=== PATIENT | female | born 1995 | race Caucasian/White ===

== ENCOUNTER 2019-02-01 12:53 | Emergency (ER) | payer MEDICAID ==
[2019-02-01] MEDS ORDERED: GENTAMICIN 0.3% DROPS PREPACK OPHT.BTL TAKEHOME ONE (13:20)
--- NOTE | 2019-02-01 13:21 | EDPHY ---
H & P Time Seen by Provider: 02/01/19 13:09 HPI/ROS: CHIEF COMPLAINT: Right eye redness HISTORY OF PRESENT ILLNESS: Patient noticed this morning right eye redness and drainage. Denies any decrease in visual acuity, denies foreign body sensation or direct trauma. REVIEW OF SYSTEMS: No fevers PAST MEDICAL HISTORY: Negative Social history: Nonsmoker General Appearance: Alert, no distress. Lids and Lashes: No edema, no stye, no erythema. Conjunctivae: Injected with right-sided exudate. Sclera: No subconjunctival hemorrhage, no icterus. Pupils: Equal and round, normally reactive. Corneas: No foreign body on surface of cornea. Anterior chamber: normal, no hyphema or hypopyon. External: No proptosis, no periorbital swelling or redness or tenderness. EOMI. Emergency Department course/MDM: Likely acute conjunctivitis, will treat with antibiotic eyedrops and ophthalmology referral. Smoking Status: Never smoked Constitutional: Initial Vital Signs Temperature (C) 36.7 C 02/01/19 13:00 Heart Rate 72 02/01/19 13:00 Respiratory Rate 16 02/01/19 13:00 O2 Sat (%) 96 02/01/19 13:00 O2 Delivery Mode Room Air Allergies/Adverse Reactions: No Known Allergies Allergy (Unverified 02/01/19 13:03) Home Medications: Medication Instructions Recorded Control 02/01/19 MDM/Departure - MDM Medications Given: Discontinued Medications Gentamicin Sulfate (Gentak 0.3% Opht Drops Prepack) 1 btl [place] EDNOW ONE Stop: 02/01/19 13:21 Last Admin: 02/01/19 13:27 Dose: 1 btl - Depart Disposition: Home, Routine, Self-Care Clinical Impression: Acute conjunctivitis of right eye Qualifiers: Acute conjunctivitis type: unspecified Qualified Code(s): H10.31 - Unspecified acute conjunctivitis, right eye Condition: Good Instructions: Gentamicin (Into the eye), Conjunctivitis (ED) Additional Instructions: Antibiotic eyedrop 1-2 drops in the right eye every 3-4 hours while awake for the next 4 days. Return for worsening eye discharge or pain or any decrease in vision. Referred to referral food chemist if not getting better in 48 hr. Referrals: Mehran Chung MD [Medical Doctor] - 2-3 days, if not improved
== END 2019-02-01 13:31 | disposition home or self-care (01) ==
DX: H10.31 Unspecified acute conjunctivitis, right eye (principal)